=== PATIENT | male | born 1980 | race Caucasian/White ===

== ENCOUNTER 2020-03-22 09:10 | Emergency (ER) | payer OTHER ==
[~2020-03-22] VITALS: Ht 180.3 cm; Wt 88.6 kg
[2020-03-22 09:29] VITALS: BP 134/76
--- NOTE | 2020-03-22 10:01 | PHYS DOC ---
Past History Past Medical History: No Pertinent History Past Surgical History: No Surgical History Alcohol Use: None Adult General Chief Complaint Chief Complaint: HAND PROBLEM HPI HPI Patient is a healthy 39-year-old male who presents status post fall. Onset was yesterday evening, patient was walking out his back door when he slipped on steps falling on outstretched left hand and subsequently falling on his tailbone. Patient suffered abrasion to left upper extremity and had weakness to left hyperthenar eminence. Patient is also voiced intermittent numbness and tingling over his thumb and index finger of left upper extremity prompting him to come in for evaluation today. He has not taken anything or done anything for the pain. Extending his hand makes worse. Timing of symptoms has been intermittent since onset. Review of Systems Review of Systems Fourteen body systems of review of systems have been reviewed. See HPI for pertinent positives and negative responses, other levin all other systems are negative, non-pertinent or non-contributory Allergies Allergies Allergies Coded Allergies Type Severity Reaction Last Updated Verified No Known Drug Allergies 03/22/20 No Physical Exam Physical Exam Constitutional: Well developed, well nourished, no acute distress, non-toxic appearance. HENT: Normocephalic, atraumatic, bilateral external ears normal, oropharynx moist, no oral exudates, nose normal. Eyes: PERRLA, EOMI, conjunctiva normal, no discharge. Neck: Normal range of motion, no tenderness, supple, no stridor. Cardiovascular: Heart rate regular, sinus rhythm, no murmurs rubs or gallops Lungs & Thorax: Bilateral breath sounds clear to auscultation Abdomen: Bowel sounds normal, soft, no tenderness, no masses, no pulsatile masses. Nonsurgical abdomen, no peritoneal signs Skin: Warm, dry, no erythema, no rash. Superficial abrasion noted to left v entral portion of forearm that is well-appearing, does not extend past epidermis without any subcutaneous tissue or muscle showing Back: No tenderness, no CVA tenderness. Extremities: No cyanosis, no clubbing, ROM intact, no edema. Left Elbow Distal humerus nontender Olecranon nontender Medial and Lateral epicondyles nontender Full Range of Motion with full strength Neurovascular exam distally in tact per routine Compartments surrounding are soft Left hand Sensation: SILT in FF/IF dorsal, proximal (radial), SF tip (ulnar), IF volar tip (median) Motor: + Thumbs Up (radial), OK sign (median), X with 2nd 3rd fingers (ulnar) Flexion & Extension 1-5 against resistance, Wrist/finger extension off table (radial), Finger AB/AD-duction (ulnar), Thumb to pinky (median). Vascular: CR<2s in all digits Compartments Soft Tenderness to pad of left hyperthenar eminence without anatomical snuffbox tenderness Neurologic: Alert and oriented X 3, grossly normal motor & sensory function, no focal deficits noted. Psychologic: Affect normal, judgement normal, mood normal. Current Patient Data Vital Signs Vital Signs Date Time Temp Pulse Resp B/P (MAP) Pulse Ox O2 Delivery O2 Flow Rate FiO2 03/22/20 09:29 98.0 77 18 134/76 (95) 97 EKG EKG [] Radiology/Procedures Radiology/Procedures PROCEDURE: WRIST 3V LEFT EXAM: WRIST 3V LEFT 03/22/2020 9:34 AM CLINICAL INDICATION:Fall on outstretched hand COMPARISON:None TECHNIQUE:3 views of the left wrist FINDINGS:No acute fracture. Alignment is normal. Joint spaces are maintained. Soft tissue is normal. IMPRESSION:No acute osseous abnormality. Electronically signed by: Vilma Oh MD (03/22/2020 9:56 AM) [id number] Heart Score Risk Factors: Risk Factors: DM, Current or recent (<one month) smoker, HTN, HLP, family history of CAD, obesity. Risk Scores: Risk Factors: DM, Current or recent (<one month) smoker, HTN, HLP, family history of CAD, obesity. Course & Med Decision Making Course & Med Decision Making Well-appearing patient seen on arrival ABCs nonconcerning Comprehensive history and physical exam obtained, no obvious emergent and/or surgical findings Discussed most likely diagnosis of sprain. Offered patient radiograph to rule out any acute bony abnormalities, this was performed and negative for any concerning findings Discussed role of supportive care for his left upper extremity with ice and NSAIDs or Tylenol as needed pain. I disclosed if condition does not improve he should seek guidance from primary care physician regarding physical therapy referral versus nerve study etc. Tetanus vaccination was updated today given abrasion on left upper extremity and unknown last tetanus Strict return precautions were discussed with patient with good understanding, all questions and concerns addressed prior to ER departure in stable condition Dragon Disclaimer Dragon Disclaimer This electronic medical record was generated, in whole or in part, using a voice recognition dictation system. Departure Departure: Impression: Primary Impression: Sprain of left wrist Additional Impression: Abrasion Disposition: 01 DC HOME SELF CARE/HOMELESS Condition: STABLE Referrals: PCP,NO (PCP) Patient Instructions: Wrist Exercises, Generic-SportsMed, Wrist Sprain with Rehab-SportsMed Additional Instructions: As instructed prior to ER departure, please call your primary care physician first thing after discharge to schedule outpatient follow-up in upcoming 3 to 10 days time Continue supportive care practices such as NSAIDs for pain control and icing daily with adjunct wrist exercises If your condition does not improve, please discuss potential need for outpatient physical therapy versus nerve testing If any concerning signs or symptoms present prior to outpatient follow-up please do not hesitate to represent for evaluation It was a pleasure to take care of you and I wish you speedy recovery Problem Qualifiers GEORGI GOMEZ DO Mar 22, 2020 10:01
[2020-03-22] MEDS ORDERED: DIPH,PERTUSS(ACELL),TET VAC/PF 0.5 ML SYRINGE. VAX IM ONE (10:15)
== END 2020-03-22 10:16 | disposition home or self-care (01) ==
LOC: ER 09:10
DX: S63.592A Other specified sprain of left wrist, initial encounter (principal); R20.2 Paresthesia of skin; W18.39XA Other fall on same level, initial encounter; Y93.89 Activity, other specified; Y92.89 Other specified places as the place of occurrence of the external cause; Y99.8 Other external cause status
CPT/HCPCS: 73110; 90471; 90715; 99283

== ENCOUNTER 2020-12-05 19:35 | Emergency (ER) | payer OTHER ==
[~2020-12-05] VITALS: Ht 180.3 cm; Wt 93.3 kg
--- NOTE | 2020-12-05 19:58 | PHYS DOC ---
Past History Past Medical History: No Pertinent History (BRAYDEN SCHOFIELD APRN) Past Surgical History: No Surgical History (BRAYDEN SCHOFIELD APRN) Alcohol Use: None (BRAYDEN SCHOFIELD APRN) General Adult EDM: Chief Complaint: MECHANICAL FALL HPI: HPI: Patient is a 40-year-old male who presents to the ER today with left hand pain that occurred after he fell onto hand. Patient rates pain 10 out of 10, does not radiate, worse with movement, no treatment prior to arrival. Patient denies any decreased sensation to his hand. (BRAYDEN SCHOFIELD APRN) Review of Systems: Review of Systems: 14 body systems of the review of systems have been reviewed. See HPI for pertinent positive and negative responses, otherwise all other systems are negative, nonpertinent or noncontributory (BRAYDEN SCHOFIELD APRN) Allergies: Allergies: Allergies Coded Allergies Type Severity Reaction Last Updated Verified No Known Drug Allergies 12/05/20 No (BRAYDEN SCHOFIELD APRN) Physical Exam: PE: Constitutional: Well developed, well nourished, no acute distress, non-toxic appearance. [] HENT: Normocephalic, atraumatic Eyes: PERRL, conjunctiva normal, no discharge. [] Neck: Normal range of motion, no stridor Cardiovascular: Normal peripheral perfusion Lungs & Thorax: Normal work of breathing, no tachypnea Skin: Warm, dry, no erythema, no ecchymosis, no rash. [] Back: Normal range of motion Extremities: No tenderness, no cyanosis, no clubbing, no edema. Right hand: Mild swelling noted to the lateral aspect of left hand, no ecchymosis or other wounds, range of motion of fingers intact, range of motion of wrist intact, neurologically intact [] Neurologic: Alert and oriented X 3, normal motor function, normal sensory function, no focal deficits noted. [] Psychologic: Affect normal, judgement normal, mood normal. [] (BRAYDEN SCHOFIELD APRN) EKG: EKG: [] (BRAYDEN SCHOFIELD APRN) Radiology/Procedures: Radiology/Procedures: PROCEDURE: HAND LEFT 3V EXAM: PA, oblique and lateral views of the left hand DATE: 12/05/2020 7:57 PM INDICATION: Reason: fall onto hand / Spl. Instructions: / History: . COMPARISON: No Prior FINDINGS/ IMPRESSION: Oblique fracture of the fifth metacarpal is mildly displaced with mild foreshortening. Associated soft tissue swelling. Electronically signed by: Graeme Wren MD (12/05/2020 8:24 PM) [facility] DICTATED AND SIGNED BY: GRAEME WREN MD DATE: 12/05/202023 CC: BRAYDEN SCHOFIELD APRN; NON,STAFF ~MTH0 0 (BRAYDEN SCHOFIELD APRN) Heart Score: C/O Chest Pain: No Risk Factors: Risk Factors: DM, Current or recent (<one month) smoker, HTN, HLP, family history of CAD, obesity. Risk Scores: Score 0 - 3: 2.5% MACE over next 6 weeks - Discharge Home Score 4 - 6: 20.3% MACE over next 6 weeks - Admit for Clinical Observation Score 7 - 10: 72.7% MACE over next 6 weeks - Early Invasive Strategies (BRAYDEN SCHOFIELD APRN) Course & Med Decision Making: Course & Med Decision Making Pertinent Labs and Imaging studies reviewed. (See chart for details) Patient is a 40-year-old male being seen for left hand pain after he fell onto his hand 20 minutes prior to ER arrival. An x-ray of his hand was performed in the ER that showed oblique fracture of the left fifth metacarpal with mild displacement and mild shortening. Patient's hand placed in splint. Patient neurovascularly intact after splint placement, patient tolerated procedure. Patient will be discharged with pain medication and follow-up information. I discussed with patient all findings and diagnostic testing as well as the need to follow-up with PCP for further evaluation and treatment or return to the ER if any new or worsening symptoms. Strict return precautions were also discussed at length. Patient voiced understanding and agreement with the plan. Patient is hemodynamically stable at the time of disposition. (BRAYDEN SCHOFIELD APRN) Dragon Disclaimer: Dragon Disclaimer: This electronic medical record was generated, in whole or in part, using a voice recognition dictation system. (BARYDEN SCHOFIELD APRN) Departure Departure: Impression: Primary Impression: Metacarpal bone fracture Disposition: HOME / SELF CARE / HOMELESS Condition: GOOD Referrals: NON,STAFF (PCP) Patient Instructions: Hand Fracture, Fifth Metacarpal, RICE - Routine Care for Injuries Additional Instructions: You seen in the ER today for a fracture or broken bone. You had a splint placed to help with pain and healing. You will need to follow-up with the orthopedic doctors in the orthopedic clinic as soon as possible. You can follow-up with the orthopedic clinic at [facility] if you would like their phone number is [phone]. You should perform range of motion exercises to prevent stiffness of your joints. Splints help with the pain and can promote healing but immobility can cause chronic pain over time. Please refer to these attached instructions regarding range of motion exercises. Keep the splint clean and dry avoid getting it wet. If the splint gets wet you will need to have it replaced. You should use ice and elevation to help with the swelling and pain. For the first 24 hours apply ice 20 minutes on 20 minutes off 4 times per day. Ensure that ice is in a plastic bag as to not get the splint wet. You may take NSAID medications (Tylenol, ibuprofen, naproxen) to help with the pain. You are being sent home with a prescription for [place]. This medication contains hydrocodone and may cause sedation. Use caution taking this medication, do not take this medication with any alcohol, or take, you need to be alert. Please return to the emergency department if you develop any of the following symptoms: Increasing pain that does not improve with treatments. New numbness or tingling Warmth, redness, skin discoloration, skin breakdown, drainage from under splint or near splinted area. Increasing inability to move your extremity or digits. Foul odor coming from splint Fevers or chills Nausea or vomiting Persistent lightheadedness We would be happy to see you for any other concerning symptoms regarding your splinted extremity. EMERGENCY DEPARTMENT GENERAL DISCHARGE INSTRUCTIONS Thank you for coming to [facility] (ED) today and trusting us with you care. We trust that you had a positivie experience in our Emergency Department. If you wish to speak to the department management, you may call the director at [phone]. YOUR FOLLOW UP INSTRUCTIONS ARE FOLLOWS: 1. Do you have a private Doctor? If you do not have a private doctor, please ask for a resource list of physicians or clinics that may be able to assist you with follow up care. 2. The Emergency Physician has interpreted your x-rays. The X-Ray specialist will also review them. If there is a change in the findings, you will be notified in 48 hours when at all possible. 3. A lab test or culture has been done, your results will be reviewed and you will be notified if you need a change in treatment. ADDITIONAL INSTRUCTIONS AND INFORMATION: 1. Your care today has been supervised by a physician who is specially trained in emergency care. Many problems require more than one evaluation for a complete diagnosis and treatment. We recommend that you schedule your follow up appointment as recommended to ensure complete treatment of you illness or injury. If you are unable to obtain follow up care and continue to have a problem, or if your condition worsens, we recommend that you return to the ED. 2. We are not able to safely determine your condition over the phone nor are we able to give sound medical advice over the phone. For these safety reasons, if you call for medical advice we will ask you to come to the ED for further evaluation. 3. If you have any questions regarding these discharge instructions please call the ED at [phone]. SAFETY INFORMATION: In the interest of safety, wellness, and injury prevention; we encourage you to wear your sealbelt, if you smoke; quite smoking, and we encourage family to use a protective helmet for bicycling and other sporting events that present an increased risk for head injury. IF YOUR SYMPTOMS WORSEN OR NEW SYMPTOMS DEVELOP, OR YOU HAVE CONCERNS ABOUT YOUR CONDITION; OR IF YOUR CONDITION WORSENS WHILE YOU ARE WAITING FOR YOUR FOLLOW UP APPOINTMENT; EITHER CONTACT YOUR PRIMARY CARE DOCTOR, THE PHYSICIAN WHOSE NAME AND NUMBER YOU WERE GIVEN, OR RETURN TO THE ED IMMEDIATELY. Scripts Hydrocodone Bit/Acetaminophen (HYDROCODONE-APAP 5-325 ) 1 Each Tablet 1 TAB PO PRN Q6HRS PRN for PAIN for 2 Days, #8 TAB 0 Refills Prov: BRAYDEN SCHOFIELD APRN 12/05/20 Attending Signature Attending Signature I have participated in the care of this patient and I have reviewed and agree with all pertinent clinical information above including history, exam, and recommendations. (MADAY [place] MD) BRAYDEN SCHOFIELD APRN Dec 05, 2020 19:58 MADAY [place] MD Dec 06, 2020 18:43
[2020-12-05] MEDS ORDERED: HYDROcodone/APAP 5/325MG 1 TAB TABLET PO ONE (20:00)
--- NOTE | 2020-12-05 20:27 | RAD ---
EXAM: PA, oblique and lateral views of the left hand DATE: 12/05/2020 7:57 PM INDICATION: Reason: fall onto hand / Spl. Instructions: / History: . COMPARISON: No Prior FINDINGS/ IMPRESSION: Oblique fracture of the fifth metacarpal is mildly displaced with mild foreshortening. Associated sof t tissue swelling. Electronically signed by: Graeme Wren MD (12/05/2020 8:24 PM) [facility]
[2020-12-05] MEDS ORDERED: HYDR-2759 PO (20:41)
[2020-12-05] MEDS ORDERED: HYDR-2155 PO (21:05)
[2020-12-05 21:10] VITALS: BP 150/88
== END 2020-12-05 21:13 | disposition home or self-care (01) ==
LOC: ER 19:35
DX: S62.307A Unspecified fracture of fifth metacarpal bone, left hand, initial encounter for closed fracture (principal); W18.39XA Other fall on same level, initial encounter; Y93.89 Activity, other specified; Y92.89 Other specified places as the place of occurrence of the external cause; Y99.8 Other external cause status
CPT/HCPCS: 29125; 73130; 99283

== ENCOUNTER 2021-01-10 12:15 | Emergency (ER) | payer OTHER ==
[~2021-01-10] VITALS: Ht 180.3 cm; Wt 96.5 kg
[~2021-01-10 12:15] MED LIST: HYDR-2155 PO; HYDR-2759 PO
[2021-01-10 12:20] VITALS: BP 149/97
[2021-01-10] MEDS ORDERED: IBUPROFEN 600 MG TABLET. PO ONE (12:45)
[2021-01-10] MEDS ORDERED: ACETAMINOPHEN 500 MG TABLET PO ONE (12:45)
--- NOTE | 2021-01-10 13:43 | RAD ---
EXAM: LEFT HAND 3 VIEWS. HISTORY: Fracture follow-up. COMPARISON: 12/05/2020. FINDINGS: An oblique fracture of the fifth metacarpal diaphysis is in unchanged alignment. There is o ne cortical width radial displacement and 8 mm shortening of the distal fracture fragment. No bridgin g callus is yet detectable. Other joint spaces and alignment are maintained. IMPRESSION: 1. Shortened, radially displaced oblique fracture of the fifth metacarpal in unchanged alignment. Electronically signed by: Ciara Dick MD (01/10/2021 1:41 PM) [id number]
[2021-01-10] MEDS ORDERED: TRAM50TA PO ×2 (13:48→14:03)
--- NOTE | 2021-01-10 13:49 | PHYS DOC ---
Past History Past Medical History: No Pertinent History (TERESA ARREDONDO APRN) Past Surgical History: No Surgical History (TERESA ARREDONDO APRN) Alcohol Use: None (TERESA ARREDONDO APRN) Adult General Chief Complaint Chief Complaint: HAND PROBLEM HPI HPI Patient is a 40-year-old male presents to the emergency department with chief complaint of feeling his left hand pop while doing dishes last night. Patient reports he fractured his hand in November and was seen here on December 05 then diagnosed with a metacarpal fracture. Patient reports he has followed up with orthopedic specialty and is currently wearing a splint placed by physical therapy as directed by his orthopedist. Patient states he had a sudden onset of pain after the pop describing it as a sharp stabbing pain in the beginning that has changed to a vibration type pain explaining it is like he is holding onto a wire plug and to a 110 socket. Patient states he was worried that he may have refractured his hand or disrupted any healing that may have been going on with his broken bone. Patient states he has not taken anything for his pain today. Patient reports a 4 out of 10 pain. Patient reports a 10 out of 10 pain at onset. Amanda ent denies any other physical complaints or physical concerns. (TERESA ARREDONDO APRN) Review of Systems Review of Systems 14 body systems of review of systems have been reviewed. See HPI for pertinent positives and negative responses, otherwise all other systems are negative, nonpertinent or noncontributory. Constitutional: Negative except as outlined in HPI above. Skin: Negative except as outlined in HPI above. Eyes: Negative except as outlined in HPI above. HENT: Negative except as outlined in HPI above. Respiratory: Negative except as outlined in HPI above. Cardiovascular: Negative except as outlined in HPI above. GI: Negative except as outlined in HPI above. : Negative except as outlined in HPI above. Musculoskeletal: Negative except as outlined in HPI above. Integument: Negative except as outlined in HPI above. Neurologic: Negative except as outlined in HPI above. Endocrine: Negative except as outlined in HPI above. Lymphatic: Negative except as outlined in HPI above. Psychiatric: Negative except as outlined in HPI above. (TERESA ARREDONDO APRN) Current Medications Current Medications Current Medications Medications (Trade) Dose Ordered Sig/Keila Start Time Stop Time Status Last Admin Dose Admin Acetaminophen (Tylenol) 1,000 mg 1X ONCE 813/21 12:45 01/10/21 12:46 DC 01/10/21 12:58 1,000 MG Ibuprofen (Motrin) 600 mg 1X ONCE 01/10/21 12:45 01/10/21 12:46 DC 01/10/21 12:58 600 MG (TERESA ARREDONDO APRN) Allergies Allergies Allergies Coded Allergies Type Severity Reaction Last Updated Verified No Known Drug Allergies 12/05/20 No (TERESA ARREDONDO APRN) Physical Exam Physical Exam Constitutional: Well developed, well nourished, no acute distress, non-toxic appearance. 40-year-old male in no apparent distress. HENT: Normocephalic, atraumatic. Eyes: Conjunctiva normal, no discharge. Neck: Normal range of motion, no stridor. Cardiovascular: No cyanosis appreciated, distal cap refill less than 2 seconds. Lungs & Thorax: Patient is in no respiratory distress, no audible adventitious lung sounds appreciated. Abdomen: Nontender, no abnormalities noted. Skin: Warm, dry, no erythema, no rash. Back: No tenderness, no deformities. Extremities: No tenderness, no cyanosis, no clubbing, ROM intact, no edema. Ex cept for left upper extremity, patient is in a custom made splint preventing movement of the wrist and digits 4 and 5. Distal cap refill less than 2 seconds, no loss of sensation appreciated, no swelling appreciated, no skin discoloration appreciated. Splint was not removed for examination. Neurologic: Alert and oriented X 3, normal motor function, normal sensory function, no focal deficits noted. Psychologic: Affect normal, judgement normal, mood normal. (TERESA ARREDONDO APRN) Current Patient Data Vital Signs Vital Signs Date Time Temp Pulse Resp B/P (MAP) Pulse Ox O2 Delivery O2 Flow Rate FiO2 01/10/21 12:20 97.7 74 20 149/97 100 Room Air (TERESA ARREDONDO APRN) EKG EKG [] (TERESA ARREDONDO APRN) Radiology/Procedures Radiology/Procedures PATIENT: MORGAN CAT ACCOUNT: [id number] : 1980 LOCATION: ER AGE: 40 SEX: M EXAM STATUS: REG ER ORD. PHYSICIAN: TERESA ARREDONDO APRN REASON: recent fx, felt pop today PROCEDURE: HAND LEFT 3V EXAM: LEFT HAND 3 VIEWS. HISTORY: Fracture follow-up. COMPARISON: 12/05/2020. FINDINGS: An oblique fracture of the fifth metacarpal diaphysis is in unchanged alignment. There is one cortical width radial displacement and 8 mm shortening of the distal fracture fragment. No bridging callus is yet detectable. Other joint spaces and alignment are maintained. IMPRESSION: 1. Shortened, radially displaced oblique fracture of the fifth metacarpal in unchanged alignment. Electronically signed by: Ciara Dick MD (01/10/2021 1:41 PM) [id number] (TERESA ARREDONDO APRN) Heart Score C/O Chest Pain: No Risk Factors: Risk Factors: DM, Current or recent (<one month) smoker, HTN, HLP, family history of CAD, obesity. Risk Scores: Risk Factors: DM, Current or recent (<one month) smoker, HTN, HLP, family history of CAD, obesity. (TERESA ARREDONDO APRN) Course & Med Decision Making Course & Med Decision Making Pertinent Labs and Imaging studies reviewed. (See chart for details) 40-year-old male, vital signs reviewed, presents to the emergency department concerning acute onset left hand pain fearing he may have refractured the healing bone of his left hand. Physical examination concerning for acute injury of left hand, will order x-ray for evaluation. Ordered p.o. Tylenol and Motrin for pain. X-ray imaging shows fracture of fifth metacarpal with unchanged alignment of fracture from previous image of 12/05/2020, did not appreciate bridging callus. Discussed findings with patient, patient reports he has orthopedic follow-up this Wednesday, discussed with patient will prescribe pain medication for acute pain, continue to leave splint in place as directed by orthopedic specialty, return to ER for increasing pain, swelling, loss of sensation, or other concerns. Patient is amenable to this plan. Discussed with the patient all findings and diagnostic testing as well as the need to follow-up with their primary care provider for further evaluation and treatment or return to the ED if any new or worsening symptoms. Strict return precautions were also discussed at length, the patient voiced understanding and agreement with the discharge planning. The patient was nontoxic in appearance, in no apparent distress, and hemodynamically stable at the time of disposition. (TERESA ARREDONDO APRN) Dragon Disclaimer Dragon Disclaimer This electronic medical record was generated, in whole or in part, using a voice recognition dictation system. (TERESA ARREDONDO APRN) Attending Co-Sign The patient was seen and interviewed as well as examined at the bedside. The chart was reviewed. The case was discussed. Agree with the plan of care. (JORGE A BROUSSARD DO) Departure Departure: Impression: Primary Impression: Metacarpal bone fracture Additional Impression: Left hand pain Disposition: HOME / SELF CARE / HOMELESS Condition: GOOD Referrals: PCP,UNKNOWN (PCP) Additional Instructions: You were seen today in the emergency department for evaluation of your left hand fracture after feeling a pop last night. An x-ray was performed and shows the same fracture as what was seen on your initial visit on 12/05/2020. Please keep your splint in place, you revealed that you have a orthopedic appointment this Wednesday, please keep this appointment. I am prescribing you tramadol for pain control, please discuss this with your orthopedic surgeon on Wednesday so he may continue managing your left hand pain related to this fracture. Please return to the emergency department for worsening symptoms or other concerns. Thank you for visiting our Emergency Department. It was a pleasure taking care of you today in the emergency department and we appreciate you trusting us with your care. If any additional problems come up don't hesitate to return to visit us. Please follow up with your primary care provider so they can plan additional care if needed and know about the problem that you had. If symptoms worsen come back to the Emergency Department. Any concerning symptoms that start such as chest pain, shortness of air, weakness or numbness on one side of the body, running high fevers or any other concerning symptoms return to the ER. EMERGENCY DEPARTMENT GENERAL DISCHARGE INSTRUCTIONS Thank you for coming to [facility] (ED) today and trusting us with you care. We trust that you had a positivie experience in our Emergency Department. If you wish to speak to the department management, you may call the director at [phone]. YOUR FOLLOW UP INSTRUCTIONS ARE FOLLOWS: 1. Do you have a private Doctor? If you do not have a private doctor, please ask for a resource list of physicians or clinics that may be able to assist you with follow up care. 2. The Emergency Physician has interpreted your x-rays. The X-Ray specialist will also review them. If there is a change in the findings, you will be notified in 48 hours when at all possible. 3. A lab test or culture has been done, your results will be reviewed and you will be notified if you need a change in treatment. ADDITIONAL INSTRUCTIONS AND INFORMATION: 1. Your care today has been supervised by a physician who is specially trained in emergency care. Many problems require more than one evaluation for a complete diagnosis and treatment. We recommend that you schedule your follow up appointment as recommended to ensure complete treatment of you illness or injury. If you are unable to obtain follow up care and continue to have a problem, or if your condition worsens, we recommend that you return to the ED. 2. We are not able to safely determine your condition over the phone nor are we able to give sound medical advice over the phone. For these safety reasons, if you call for medical advice we will ask you to come to the ED for further evaluation. 3. If you have any questions regarding these discharge instructions please call the ED at [phone]. SAFETY INFORMATION: In the interest of safety, wellness, and injury prevention; we encourage you to wear your sealbelt, if you smoke; quite smoking, and we encourage family to use a protective helmet for bicycling and other sporting events that present an increased risk for head injury. IF YOUR SYMPTOMS WORSEN OR NEW SYMPTOMS DEVELOP, OR YOU HAVE CONCERNS ABOUT YOUR CONDITION; OR IF YOUR CONDITION WORSENS WHILE YOU ARE WAITING FOR YOUR FOLLOW UP APPOINTMENT; EITHER CONTACT YOUR PRIMARY CARE DOCTOR, THE PHYSICIAN WHOSE NAME AND NUMBER YOU WERE GIVEN, OR RETURN TO THE ED IMMEDIATELY. Scripts Tramadol Hcl (TRAMADOL HCL) 50 Mg Tablet 50 MG PO PRN Q6HRS PRN for PAIN, #40 TAB 0 Refills Take 1 or 2 tablets as needed for pain every 6 hours, [address] not drive or operate heavy machinery while taking or under the influence of this medication for pain. Prov: TERESA ARREDONDO TECHNICAL AIDE 01/10/21 Problem Qualifiers Primary Impression: Metacarpal bone fracture Encounter type: subsequent encounter Metacarpal bone: fifth Fracture type: closed Metacarpal location: shaft Fracture alignment: displaced Laterality: left Fracture healing: with delayed healing Qualified Codes: S62.327G - Displaced fracture of shaft of fifth metacarpal bone, left hand, subsequent encounter for fracture with delayed healing TERESA ARREDONDO APRN Jan 10, 2021 13:49 JORGE A BROUSSARD DO Jan 11, 2021 06:17
== END 2021-01-10 14:06 | disposition home or self-care (01) ==
LOC: ER 12:15
DX: S62.327G Displaced fracture of shaft of fifth metacarpal bone, left hand, subsequent encounter for fracture with delayed healing (principal); X50.9XXD Other and unspecified overexertion or strenuous movements or postures, subsequent encounter
CPT/HCPCS: 73130; 99283